=== PATIENT | female | born 1995 | race Caucasian/White ===

== ENCOUNTER 2016-12-06 06:36 | Outpatient (CLI) | payer MEDICAID ==
[~2016-12-06] VITALS: Ht 154.9 cm; Wt 61.9 kg
[~2016-12-06 06:36] MED LIST: PRENAT PO
[2016-12-06 07:31] VITALS: BP 120/71; PULSE 87; Ht 154.9 cm; Wt 61.9 kg
[2016-12-06] MEDS ORDERED: TERBUTALINE 1 MG/ML INJ SC ONE (08:00)
--- NOTE | 2016-12-06 08:44 | RADRPT ---
PROCEDURE: US OB. CLINICAL INDICATION: Size and dates TECHNIQUE: Multiple sonographic images of the pelvis and gravid uterus were obtained. The images were reviewed on a PACS workstation. COMPARISON: No prior studies are available for comparison. FINDINGS: There is a single viable intrauterine gestation. Cardiac activity is present with 134 beats per min enio. There is a vertex presentation. The placenta is anterior. There is no evidence for an abruption or placenta previa. There is a normal amount of amniotic fluid with an YADY = 15.3 cm. Measurements were made in order to determine age. The results are as follows: BPD =8.6 cm HC =30.9 cm AC =29.4 cm FL =5.6 cm Estimated gestational age of approximately 33 weeks and 1 day based on ultrasound measurements. Clinical age: 35 weeks and 5 days. The estimated date of delivery is 01/23/17, based on ultrasound measurements. The EFW = 1993 g, <3%, based on LMP age. RPTAT: AA IMPRESSION: Single viable intrauterine gestation of approximately 33 weeks and 1 days based on ultrasound measu rements. Smaller than clinical age by 2.5 weeks. .Adelso Doherty MD, MD Date Time Electronically viewed and signed by .Adelso Doherty MD, on 12/06/2016 08:43 .S/
--- NOTE | 2016-12-06 08:45 | RADRPT ---
PROCEDURE: US OB biophysical profile. Ultrasound cervix CLINICAL INDICATION: decreased movements TECHNIQUE: Multiple sonographic images of the pelvis were obtained. The images were reviewed on a PACS workstation. In addition, transvaginal images of the cervix were obtained. COMPARISON: No prior studies are available for comparison. FINDINGS: There is a single viable intrauterine gestation. Cardiac activity is present with 135 beats per min enio. There is a vertex presentation. The placenta is anterior. There is no evidence for an abruption or placenta previa. There is a normal amount of amniotic fluid with an YADY = 15.3 cm. The cervix length measures 3.9 cm. There is a trace amount of fluid within the cervix. Biophysical profile: movement 2/2 tone 2/2. breathing 2/2 YADY 2/2 Total 04/01 RPTAT: AA . IMPRESSION: Normal biophysical profile. Cervix length measures 3.9 cm. . .Adelso Doherty MD, MD Date Time Electronically viewed and signed by .Adelso Doherty MD, on 12/06/2016 08:44 .S/
[2016-12-06] MEDS ORDERED: LACTATED RINGER'S 1,000 ML IV SCH (09:00)
[2016-12-06 09:14] LABS: ADD UMIC NO; URINE BILIRUBIN (Dip) NEGATIVE (NEGATIVE); URINE BLOOD (Dip) NEGATIVE (NEGATIVE); URINE COLOR YELLOW (YELLOW); URINE GLUCOSE (Dip) NEGATIVE (NEGATIVE); URINE KETONES (Dip) NEGATIVE (NEGATIVE); URINE LEUKOCYTE ESTERASE (Dip) NEGATIVE (NEGATIVE); URINE NITRITE (Dip) NEGATIVE (NEGATIVE); URINE TOTAL PROTEIN (Dip) NEGATIVE (NEGATIVE); URINE UROBILINOGEN (Dip) 0.2 E.U./dL (0.1-1.0)
--- NOTE | 2016-12-29 18:47 | DS ---
Date/Time of Note Date/Time of Note DATE: 12/29/16 TIME: 18:44 Obstetrical Discharge Record Final Diagnosis Final Diagnosis: not delivered Complications Other Augmentation: No Induction: No Rupture of Membranes: No Condition on Discharge Physical Assessment Last Vitals: vs stable Voiding: Yes Bowel Movement: Yes Breast: Soft, non-tender Calf Tenderness: No Patient Condition: Good ALEXA FERRELL MD December 29, 2016 18:47
--- NOTE | 2017-01-07 19:56 | QN ---
Documentation Comment 38 weeks suspected labor ALEXA FERRELL MD January 07, 2017 19:56
== END 2016-12-06 12:55 | disposition home or self-care (01) ==
LOC: OBT 06:36 → L-D 06:37 → OBT 12:55
PROVIDERS: ATTEND Obstetrics & Gynecology
DX: O60.03 Preterm labor without delivery, third trimester (principal); O36.8130 Decreased fetal movements, third trimester, not applicable or unspecified; Z3A.38 38 weeks gestation of pregnancy
CPT/HCPCS: 36415; 76815; 76817; 76818; 81003; 96360; 96361; 96372; J3105; J7120; Z7500; G0463

== ENCOUNTER 2016-12-25 16:47 | Outpatient (CLI) | payer MEDICAID ==
[~2016-12-25] VITALS: Ht 154.9 cm; Wt 63.0 kg
[2016-12-25] MEDS ORDERED: CALC600T11 PO (17:02)
[2016-12-25] MEDS ORDERED: FER325 PO (17:02)
[2016-12-25] MEDS ORDERED: PRENAT PO (17:02)
[2016-12-25 17:03] VITALS: BP 116/64; PULSE 93; RESP 18; Ht 154.9 cm; Wt 63.0 kg
--- NOTE | 2016-12-25 18:31 | RADRPT ---
PROCEDURE: US biophysical profile. CLINICAL INDICATION: Decreased motion. TECHNIQUE: Multiple sonographic images of the uterus were obtained. The images were revi ewed on a PACS workstation. COMPARISON: No prior studies are available for comparison. FINDINGS: There is a single live intrauterine gestation. heart rate is 146 beats per minute. The position is cephalic. The placenta is anterior grade II with no abruption or previa. The YADY is 20.2 cm. (Normal = 5-20 cm.) Breathing Movement: 2 Gross Body Movement: 2 Tone: 2 Qualitative Amniotic Fluid Volume: 2 TOTAL: 8 IMPRESSION: 1. The biophysical score is 8/8. RPTAT: QQ .Chavez Cheney MD, MD Date Time Electronically viewed and signed by .Chavez Cheney MD, on 12/25/2016 18:30 .R/
[2016-12-25 19:37] LABS: ADD UMIC NO; URINE BILIRUBIN (Dip) NEGATIVE (NEGATIVE); URINE BLOOD (Dip) NEGATIVE (NEGATIVE); URINE COLOR LT. YELLOW (YELLOW); URINE GLUCOSE (Dip) NEGATIVE (NEGATIVE); URINE KETONES (Dip) NEGATIVE (NEGATIVE); URINE LEUKOCYTE ESTERASE (Dip) NEGATIVE (NEGATIVE); URINE NITRITE (Dip) NEGATIVE (NEGATIVE); URINE TOTAL PROTEIN (Dip) NEGATIVE (NEGATIVE); URINE UROBILINOGEN (Dip) 0.2 E.U./dL (0.1-1.0)
--- NOTE | 2016-12-25 22:33 | TRIAGE ---
OB Triage Datetime Report Generated by CPN: 12/25/2016 22:32 Datetime: 12/25/2016 20:25 Stage of : OB Triage Labor Evaluation Frequency: Irritability/UC x1 Monitor Mode: External Duration (sec)2399: 20-60 Quality: Mild Pattern: Normal: <= 5 Contractions in 10 Minutes Resting Tone [place]: Relaxed Comments: Pt reports positive movt. Datetime: 12/25/2016 20:05 Stage of : OB Triage Datetime: 12/25/2016 20:00 Stage of : OB Triage Labor Evaluation Frequency: Irritability/Occasional Monitor Mode: External Duration (sec)2399: 20-80 Quality: Mild Pattern: Normal: <= 5 Contractions in 10 Minutes Resting Tone [place]: Relaxed Comments: Pt reports positive movt. Datetime: 12/25/2016 19:54 Vaginal Exam Dilatation (cms): 0.0 Effacement (%): 30 Station: -2 Exam By: ALEXANDRA Velasco Membrane Status: Intact Vaginal Bleeding: None Cervix, Consistency: Firm Cervix, Position: Posterior Datetime: 12/25/2016 19:24 Monitor Mode: Palpation Resting Tone [place]: Relaxed Contraction Comments: No uc's palpated Datetime: 12/25/2016 19:22 Stage of : OB Triage Assessment Type: Triage Maternal Assessment Level of Consciousness: Fully Conscious DTR's/Clonus: DTRs 2+; No Clonus Headache: Denies Blurred Vision: No Respiratory Effort: Unlabored; Regular Rhythm; Equal Expansion Breath Sounds, Left: Clear and Equal Breath Sounds, Right: Clear and Equal Nausea/Vomiting: Denies RUQ Epigastric Pain: Denies Lower Extremities Edema: None Degree: None Upper Extremities Edema: None Degree: None Facial Edema: None Temperature Route: Oral Fall Risk Assessment History of Falling: (0) No Secondary Diagnosis: (0) No Ambulatory Aid: (0) Bedrest/Nurse Assist IV Therapy: (0) No Gait: (0) Normal/Bedrest/Immobile Mental Status: (0) Oriented to Own Ability Fall Score: 0 Fall Risk Score Definition: No Risk: No action required Pain Assessment Pain Scale: 5 Pain Presence: Intermittent Pain Type: Cramping Pain Location: Abdomen Pain Relief Measures: Comfort Measures Datetime: 12/25/2016 19:00 Stage of : OB Triage Maternal Assessment Level of Consciousness: Fully Conscious Labor Evaluation Frequency: none Monitor Mode: External Resting Tone [place]: Relaxed Heart Rate FHR Baseline Rate: 125 Monitor Mode: External US Variability: Moderate 6-25 bpm Accelerations: 15X15 Decelerations: None Pain Assessment Pain Scale: 0 Pain Presence: None/Denies Pain Type: N/A Pain Goal: 3 Membrane Status: Intact Vaginal Bleeding: None Datetime: 12/25/2016 18:22 Comments: monitors off for bedside u/s. Datetime: 12/25/2016 18:00 Stage of : OB Triage Maternal Assessment Level of Consciousness: Fully Conscious Labor Evaluation Frequency: none Monitor Mode: External Resting Tone [place]: Relaxed Heart Rate FHR Baseline Rate: 135 Monitor Mode: External US Variability: Moderate 6-25 bpm Accelerations: 15X15 Decelerations: None Pain Assessment Pain Scale: 0 Pain Presence: None/Denies Pain Type: N/A Pain Goal: 3 Membrane Status: Intact Vaginal Bleeding: None Datetime: 12/25/2016 17:29 Vaginal Exam Dilatation (cms): 0.0 Station: -2 Exam By: khemani Vaginal Bleeding: None Cervix, Consistency: Moderate Cervix, Position: Midposition Datetime: 12/25/2016 17:00 Assessment Type: Triage EGA: 38.3 Maternal Assessment Level of Consciousness: Fully Conscious DTR's/Clonus: DTRs 2+; No Clonus Headache: Denies Blurred Vision: No Respiratory Effort: Unlabored; Regular Rhythm; Equal Expansion Breath Sounds, Left: Clear and Equal Breath Sounds, Right: Clear and Equal Nausea/Vomiting: Denies RUQ Epigastric Pain: Denies Lower Extremities Edema: None Degree: None Upper Extremities Edema: None Degree: None Facial Edema: None Fall Risk Assessment History of Falling: (0) No Secondary Diagnosis: (0) No Ambulatory Aid: (0) Bedrest/Nurse Assist IV Therapy: (0) No Gait: (0) Normal/Bedrest/Immobile Mental Status: (0) Oriented to Own Ability Fall Score: 0 Fall Risk Score Definition: No Risk: No action required Datetime: 12/25/2016 16:59 Time of Arrival: 12/25/2016 16:42 Arrived By: Ambulatory Arrived From: Home Chief Complaint: c/o UC'S Movement: Present Contractions: Irregular Time Contractions Began: 12/25/2016 12:00 Rupture of Membranes: Denies Vaginal Bleeding: None Vaginal Discharge: Denies Recent Sexual Intercouse: Denies Abdominal Trauma: Not Applicable Patient Complaints: Contractions; Cramping Time Provider Notified: 12/25/2016 17:19 Provider Notified: MARIAELENA Initial Plan: EFM, SVE, U/S BPP, UA, PO HYDRATION Datetime: 12/25/2016 16:56 Monitor Mode: External Monitor Mode: External US
--- NOTE | 2016-12-26 00:23 | QN ---
Documentation Comment 21-year-old with IUP at 38 weeks and 3 days with history of 1 presented with complaint of lower abdominal pain. She denies any leaking of fluid, vaginal bleeding or decreased movement. Patient denies any other complaint. She had been scheduled for repeat at 39 weeks. She denies any dysuria, or any urinary symptoms. Physical examination: General appearance, alert and oriented 4. Patient is in mild distress. Abdomen: Soft, gravid, nontender, no rebound tenderness, no guarding, no rigidity, Fundal height consistent with gestational age. NST: Category 1. Some occasional rare contraction on the monitor seen Urine dip negative Sterile vaginal exam: Cervix closed long and station -2 After hydration and observation repeat cervical exam did not show any change PROCEDURE: US biophysical profile. CLINICAL INDICATION: Decreased motion. TECHNIQUE: Multiple sonographic images of the uterus were obtained. The images were reviewed on a PACS workstation. COMPARISON: No prior studies are available for comparison. FINDINGS: There is a single live intrauterine gestation. heart rate is 146 beats per minute. The position is cephalic. The placenta is anterior grade II with no abruption or previa. The YADY is 20.2 cm. (Normal = 5-20 cm.) Breathing Movement: 2 Gross Body Movement: 2 Tone: 2 Qualitative Amniotic Fluid Volume: 2 TOTAL: 8 IMPRESSION: 1. The biophysical score is 8/8. RPTAT: QQ testing reassuring Assessment: IUP at 38 weeks and 3 days History of 1 False labor contractions Resolved with hydration Patient currently scheduled for repeat at 39 weeks Strict labor precaution and kick count discussed She was advised to immediately to report the hospital if her symptoms recurs and not improve or for decreased movement, leaking of fluid or any other concern. Patient verbalized understanding. WILLOW JESUS MD December 26, 2016 00:23
== END 2016-12-25 20:34 | disposition home or self-care (01) ==
LOC: MERGE 16:47 → OBT 16:47 → L-D 16:47 → OBT 20:34
PROVIDERS: ATTEND Obstetrics & Gynecology
DX: O47.1 False labor at or after 37 completed weeks of gestation (principal); O34.219 Maternal care for unspecified type scar from previous cesarean delivery; Z3A.38 38 weeks gestation of pregnancy
CPT/HCPCS: 76818; 81003; Z7500; G0463

== ENCOUNTER 2017-01-01 09:49 | Inpatient (IN) | payer MEDICAID ==
[~2017-01-01] VITALS: Ht 154.9 cm; Wt 63.6 kg
[~2017-01-01 09:49] MED LIST changes: +CALC600T11 PO; +FER325 PO
[2017-01-01 10:17] VITALS: Ht 154.9 cm; Wt 63.6 kg
[2017-01-01 10:20] VITALS: BP 109/64; PULSE 82; RESP 18
[2017-01-01] MEDS ORDERED: MISOPROSTOL 200 MCG TAB PR PRN ×2 (10:30→17:00)
[2017-01-01] MEDS ORDERED: CARBOPROST 250 MCG INJ IM PRN ×2 (10:30→17:00)
[2017-01-01] MEDS ORDERED: OXYTOCIN 30 UNITS/LR 500 ML IV PRN ×2 (10:30→17:00)
[2017-01-01] MEDS ORDERED: CEFAZOLIN 2 GM/50 ML (PMX) 50 ML IV SCH (10:30)
[2017-01-01] MEDS ORDERED: OXYTOCIN 30 UNITS/LR 500 ML IV SCH (10:30)
[2017-01-01] MEDS ORDERED: METHYLERGONOVINE 0.2 MG INJ IM PRN ×2 (10:30→17:00)
[2017-01-01] MEDS: LACTATED RINGER'S 1,000 ML IV SCH ×2 (10:53→12:41)
[2017-01-01 10:56] LABS: ADD SCAN DIFF NO
[2017-01-01 11:14] LABS: BASOPHILS % 0.3 % (0.0-2.0); EOSINOPHILS # 0.2 10^3/ul (0.0-0.5); EOSINOPHILS % 2.1 % (0.0-7.0); HEMATOCRIT 35.5 % (37.0-47.0); HEMOGLOBIN 11.8 g/dl (12.0-16.0); LYMPHOCYTES # 1.7 10^3/ul (0.8-2.9); LYMPHOCYTES % 21.6 % (18.0-55.0); MEAN CORPUSCULAR HEMOGLOBIN 29.9 pg (29.0-33.0); MEAN CORPUSCULAR HGB CONC 33.2 g/dl (32.0-37.0); MEAN CORPUSCULAR VOLUME 89.9 fl (72.0-104.0); MEAN PLATELET VOLUME 12.2 fl (7.4-10.4); MONOCYTE # 0.7 10^3/ul (0.3-0.9); NEUTROPHIL # 5.1 10^3/ul (1.6-7.5); NEUTROPHILS % 66.1 % (30.0-74.0); PLATELET COUNT 130 10^3/UL (140-415); RED BLOOD COUNT 3.95 10^6/ul (4.20-5.40); RED CELL DISTRIBUTION WIDTH 13.6 % (11.5-14.5); WHITE BLOOD COUNT 7.7 10^3/ul (4.8-10.8)
[2017-01-01 11:20] LABS: INR 0.93; PROTIME 12.5 Sec (12.2-14.2)
[2017-01-01 11:25] LABS: PARTIAL THROMBOPLASTIN TIME 26.9 Sec (25.0-35.0)
[2017-01-01] MEDS ORDERED: ONDANSETRON 4 MG INJ IV STA (11:59)
[2017-01-01] MEDS ORDERED: CITRIC ACID/SODIUM CITRATE 15 ML CUP PO ONE (12:00)
[2017-01-01] MEDS ORDERED: CEFAZOLIN 1 GM INJ ONE (12:50)
[2017-01-01] MEDS ORDERED: ROCURONIUM 50 MG INJ ONE (12:50)
[2017-01-01] MEDS ORDERED: PROPOFOL 0 ML ONE (12:50)
[2017-01-01] MEDS ORDERED: GLYCOPYRROLATE 0.4 MG INJ ONE (12:50)
[2017-01-01] MEDS ORDERED: NEOSTIGMINE 3 MG/3 ML SYRINGE ONE (12:50)
[2017-01-01] MEDS ORDERED: FENTAnyl 50 MCG/ML VIAL ONE (12:51)
[2017-01-01] MEDS ORDERED: PHENYLephrine (100 MCG/ML) 5ML SYG ONE (12:51)
[2017-01-01] MEDS ORDERED: OXYTOCIN 10 UNIT INJ ONE (12:51)
[2017-01-01] MEDS ORDERED: morphine SULFATE/PF (10 MG/10 ML) INJ ONE (12:51)
[2017-01-01] MEDS ORDERED: METOCLOPRAMIDE 10 MG INJ ONE (12:51)
--- NOTE | 2017-01-01 13:04 | HP ---
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13 history of 1 previous with section Allergies denies allergy to any known Social habit denies a smoking or drinking or using illicit drug Review of system within normal Physical examination 5 feet 1 140 pound temperature 98.2 pulse 73 respiration 18 blood pressure 121/60 Head ears nose and throat negative Neck supple no thyromegaly lungs clear to P&A Heart normal sinus rhythm no murmur Abdomen fundal height 37 cm from symphysis pubis to the height of the fundus heart rate category 1 Pelvic examination deferred Extremities no edema no varicosities Impression Intrauterine at 39 weeks and 3 day history of previous patient is undergoing repeat section she has been counseled regarding the complication of the surgery including but not limited to bowel and bladder injury infection hemorrhage wound hematoma and infection she is willing to go ahead with this procedure Estimated Due Date: January 05, 2017 : 2 Para: 1 Care: Good Care Ultrasounds: Normal mid trimester US Obstetrical Complications: None Medical Complications: None Past Family/Social History * Past Medical, Surgical, Family and Obstetric Histories reviewed from chart. Rubella: immune RPR/VDRL: Negative GBS Status: Negative HBsAG: Negative OB Admission Exam Vital Signs Vital Signs Vital Signs Date Time Temp Pulse Resp B/P Pulse Ox O2 Delivery O2 Flow Rate FiO2 01/01/17 10:20 98.5 82 18 109/64 Room Air Physical Exam HEENT: WNL Heart: Rhythm Normal Lungs: Clear, Equal Abdomen: WNL Extremities: Normal Reflexes: Normal Cervical Dilatation: None Effacement: 0% Station: -1 Membranes: Intact Heart Rate: 130's Accelerations: Accelerations Present Decelerations: No Decelerations Contractions on Admission: >10 Minutes Apart Intensity: Mild Last 72 hours Lab Results CBC & BMP 01/01/17 10:30 ALEXA FERRELL MD January 01, 2017 13:04
[2017-01-01] MEDS ORDERED: LABETALOL HCL 20MG INJ IV PRN (13:30)
[2017-01-01] MEDS ORDERED: TRIMETHOBENZAMIDE 100 MG/ML VIAL IM PRN (13:30)
[2017-01-01] MEDS ORDERED: EPHEDrine SULFATE 50 MG/5 ML SYG IV PRN (13:30)
[2017-01-01] MEDS ORDERED: ONDANSETRON 4 MG INJ IV PRN ×2 (13:30)
[2017-01-01] MEDS ORDERED: DIPHENHYDRAMINE 50 MG INJ IV PRN ×2 (13:30)
[2017-01-01] MEDS ORDERED: HYDROmorphONE (0.2 MG/ML) 10ML SYG IV PRN ×3 (13:30)
[2017-01-01] MEDS ORDERED: hydrALAzine 20 MG INJ IV PRN (13:30)
[2017-01-01] MEDS ORDERED: MEPERIDINE 25 MG INJ IV PRN (13:30)
[2017-01-01] MEDS ORDERED: FENTAnyl 50 MCG/ML VIAL IV PRN ×3 (13:30)
[2017-01-01] MEDS ORDERED: morphine 2 MG INJ IV PRN ×2 (13:30)
[2017-01-01] MEDS ORDERED: NALOXONE (0.4 MG/ML) INJ IV PRN (13:30)
--- NOTE | 2017-01-01 14:25 | OPR ---
DATE OF OPERATION: 01/01/2017 PREOPERATIVE DIAGNOSES: 1. Intrauterine at 39 weeks and 4 days. 2. History of previous section. POSTOPERATIVE DIAGNOSES: 1. Intrauterine at 39 weeks and 4 days. 2. History of previous section. PROCEDURE: Repeat transverse low cervical section. SURGEON: Alexa Rose MD GARMENT WORKER: Veronique Flowers MD ANESTHESIA: Spinal. ANESTHESIOLOGIST: Dr. Caicedo FINDINGS: Live baby girl with the Apgars 9 and 9. DETAILS OF THE PROCEDURE: Under satisfactory spinal anesthesia, the patient was prepped and draped and placed in supine position, tilted to the left. Pfannenstiel incision was made. The incision ca rried through the subcutaneous tissue. Bleeders brought under control with electrocautery. Fascia incised to the length of incision. Rectus muscle divided in midline. Peritoneum exposed, entered t hrough a transverse incision. Exploration of abdomen: Gravid uterus, normal-appearing tubes and ov lolita, extremely thinned out lower segment of the uterus. Bladder flap was developed. Transverse i ncision was made in the lower segment of the uterus. Amniotic sac ruptured. Clear amniotic fluid n oted. Live baby girl was delivered from unengaged vertex. Nasal oropharyngeal suction was performe d. Baby handed to the team for immediate attention. The patient received 20 units of Nehemiah gwen. Placenta delivered manually intact. Uterine cavity cleaned with wet sponge and drainage estab lished. Uterus closed in 2 layers using Monocryl #1 in continuous fashion. Peritoneal cavity irrig ated with warm saline. Sponge, needle, and instrument reported to be correct. Abdominal peritoneum closed with 2-0 chromic catgut continuously. Rectus muscle approximated with few interrupted 2-0 c hromic catgut. Fascia closed with #1 PDS in a continuous fashion. Subcutaneous tissue approximated with interrupted 2-0 chromic catgut. The skin closed subcuticular with 3-0 Monocryl. The patient tolerated the procedure well. Estimated blood loss 600 mL. Urine bag contained 200 mL of clear uri ne. The patient tolerated the procedure well and transferred to recovery room in a good condition. Dictated By: ALEXA AVELAR/ANKIT Conf#: [id number] DID#: [id number]
[2017-01-01] MEDS: KETOROLAC 30 MG INJ IV PRN (15:43)
[2017-01-01 17:00] VITALS: BP 117/72; PULSE 69; RESP 18
[2017-01-01] MEDS ORDERED: OXYCODONE/ACETAMINOPHEN (5/325) TAB PO PRN (17:00)
[2017-01-01] MEDS ORDERED: ACETAMINOPHEN/CODEINE #3 TAB PO PRN ×2 (17:00)
[2017-01-01] MEDS ORDERED: CEFAZOLIN 1 GM/50 ML (PMX) 50 ML IVPB SCH (17:00)
[2017-01-01] MEDS: IBUPROFEN 600 MG TAB PO SCH (18:00)
[2017-01-01] MEDS: LANOLIN 7 GM TUBE TOP PRN (18:35)
[2017-01-01] MEDS: OXYTOCIN 30 UNITS/LR 500 ML IV SCH ×2 (18:40→23:39)
[2017-01-01 19:40] VITALS: BP 105/57; PULSE 83; RESP 20
[2017-01-02] VITALS: BP 110/60; PULSE 74; RESP 19
[2017-01-02] MEDS: OXYTOCIN 30 UNITS/LR 500 ML IV SCH ×3 (03:20→08:10)
[2017-01-02] MEDS: KETOROLAC 30 MG INJ IV PRN ×2 (03:21→08:58)
[2017-01-02 04:00] VITALS: BP 101/59; PULSE 77; RESP 19
[2017-01-02] MEDS: IBUPROFEN 600 MG TAB PO SCH ×5 (06:00→23:49)
[2017-01-02 08:00] VITALS: BP 118/65; PULSE 82; RESP 18
[2017-01-02] MEDS: SENNA/DOCUSATE NA (8.6MG/50MG) TAB PO SCH ×2 (08:09→21:21)
[2017-01-02 08:20] LABS: ADD SCAN DIFF NO
[2017-01-02 08:26] LABS: ABNORMAL IP MESSAGE 1; BASOPHILS % 0.1 % (0.0-2.0); EOSINOPHILS # 0.1 10^3/ul (0.0-0.5); EOSINOPHILS % 0.9 % (0.0-7.0); HEMATOCRIT 26.5 % (37.0-47.0); HEMOGLOBIN 8.6 g/dl (12.0-16.0); LYMPHOCYTES # 1.5 10^3/ul (0.8-2.9); LYMPHOCYTES % 19.2 % (18.0-55.0); MEAN CORPUSCULAR HEMOGLOBIN 29.7 pg (29.0-33.0); MEAN CORPUSCULAR HGB CONC 32.5 g/dl (32.0-37.0); MEAN CORPUSCULAR VOLUME 91.4 fl (72.0-104.0); MEAN PLATELET VOLUME 12.4 fl (7.4-10.4); MONOCYTE # 0.7 10^3/ul (0.3-0.9); MONOCYTES % 8.4 % (0.0-13.0); NEUTROPHIL # 5.6 10^3/ul (1.6-7.5); NEUTROPHILS % 70.9 % (30.0-74.0); PLATELET COUNT 95 10^3/UL (140-415); RED CELL DISTRIBUTION WIDTH 13.5 % (11.5-14.5); WHITE BLOOD COUNT 7.9 10^3/ul (4.8-10.8)
[2017-01-02 12:43] VITALS: BP 120/62; PULSE 84; RESP 19
[2017-01-02 15:43] VITALS: BP 105/64; PULSE 90; RESP 20
[2017-01-02] MEDS: OXYCODONE/ACETAMINOPHEN (5/325) TAB PO PRN (18:55)
[2017-01-02 20:15] VITALS: BP 110/70; PULSE 82; RESP 18
--- NOTE | 2017-01-03 00:48 | QN ---
Documentation Comment pp day 1afebrile vss bs present incision dry ext ALEXA Burns MD January 03, 2017 00:48
[2017-01-03 03:45] VITALS: BP 106/36; PULSE 75; RESP 18
[2017-01-03] MEDS: IBUPROFEN 600 MG TAB PO SCH ×4 (05:32→23:24)
[2017-01-03 08:35] VITALS: BP 116/65; PULSE 70; RESP 20
[2017-01-03] MEDS: SENNA/DOCUSATE NA (8.6MG/50MG) TAB PO SCH ×2 (09:30→21:46)
[2017-01-03] MEDS: OXYCODONE/ACETAMINOPHEN (5/325) TAB PO PRN ×2 (12:47→17:39)
[2017-01-03] MEDS: LANOLIN 7 GM TUBE TOP PRN (15:45)
[2017-01-03 16:00] VITALS: BP 125/71; PULSE 77; RESP 18
[2017-01-03] MEDS ORDERED: NA PHOSPHATE/BIPHOS 133 ML ENEMA PR ONE (18:30)
[2017-01-03 19:58] VITALS: BP 126/74; PULSE 89; RESP 18
[2017-01-04 04:00] VITALS: BP 99/59; PULSE 84; RESP 18
[2017-01-04] MEDS: IBUPROFEN 600 MG TAB PO SCH ×2 (05:35→12:00)
[2017-01-04] MEDS: OXYCODONE/ACETAMINOPHEN (5/325) TAB PO PRN (07:22)
[2017-01-04 08:07] VITALS: BP 113/57; PULSE 78; RESP 16
[2017-01-04] MEDS ORDERED: DIPHTH/TET/ACEL PERTUSS (ADULT) 0.5 ML VIAL IM* ONE (09:00)
[2017-01-04] MEDS: SENNA/DOCUSATE NA (8.6MG/50MG) TAB PO SCH (10:10)
--- NOTE | 2017-01-04 12:21 | PD.PPDC ---
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
--- NOTE | 2017-01-04 12:24 | DS ---
Date/Time of Note Date/Time of Note DATE: 01/04/17 TIME: 12:22 Discharge Summary Admission/Discharge Info Admit Date/Time January 01, 2017 at 09:49 Discharge Date/Time January 04 at 1230 Final Diagnosis history of previous Patient Condition: Good Procedures Repeat Hx of Present Illness Term history of previous Hospital Course Satisfactory uneventful Home Meds Reported Medications Calcium Carbonate* (Calcium Carbonate*) 600 MG Ca Tab, 600 MG PO DAILY, TAB 12/25/16 Ferrous Sulfate* (Ferrous Sulfate*) 325 Mg Tabec, 325 MG PO DAILY, TAB 12/25/16 Multivit/Min/Fol Ac/Iron/Pren* ( S*) 1 Tab Tab, 1 TAB PO DAILY, TAB 12/25/16 Multivit/Min/Fol Ac/Iron/Pren* ( S*) 1 Tab Tab, 1 TAB PO DAILY, TAB 06/01/14 ALEXA FERRELL MD January 04, 2017 12:24
== END 2017-01-04 17:27 | disposition home or self-care (01) | DRG 766 ==
LOC: L-D 09:49 → PP1 17:00
PROVIDERS: ADMIT Obstetrics & Gynecology; ATTEND Obstetrics & Gynecology
PROC: 10D00Z1 Extraction of Products of Conception, Low, Open Approach (ICD-10-PCS; principal; 2017-01-01 12:30)
DX: O34.211 Maternal care for low transverse scar from previous cesarean delivery (principal); Z37.0 Single live birth; Z3A.39 39 weeks gestation of pregnancy
CPT/HCPCS: 85025; 85610; 85730; 86592; 86850; 86900; 86901; 87340; 90715; 94760; 99464; J0690; J1170; J1885; J2210; J2274; J2370; J2405; J2590; J2710; J2765; J3010; J7120